=== PATIENT | female | born 1970 | race Caucasian/White ===

== ENCOUNTER 2024-02-18 10:14 | Emergency (ER) | payer OTHER ==
[2024-02-18 10:22] VITALS: BP 143/87; PULSE 96; RESP 18; TEMP 97.7; BMI 34.2
[2024-02-18] MEDS ORDERED: LIDOCAINE 4% PATCH TP ONE (10:49)
[2024-02-18] MEDS ORDERED: KETOROLAC TROMETHAMINE 30 MG/1 ML VIAL ONE (10:49)
[2024-02-18] MEDS: KETOROLAC TROMETHAMINE 30 MG/1 ML VIAL IM ONE (10:55)
[2024-02-18] MEDS: LIDOCAINE 4% PATCH TP ONE (10:55)
== END 2024-02-18 11:22 | disposition home or self-care (01) ==
LOC: JERFT 10:14
PROC: 3E0133Z Introduction of Anti-inflammatory into Subcutaneous Tissue, Percutaneous Approach (ICD-10-PCS; principal; 2024-02-18)
DX: M54.50 Low back pain, unspecified (principal)
CPT/HCPCS: 96372; 99284-25